=== PATIENT | female | born 1960 | race Caucasian/White ===

== ENCOUNTER 2023-01-04 14:34 | Emergency (ER) | payer OTHER ==
[~2023-01-04] VITALS: Ht 154.9 cm; Wt 59.9 kg
[2023-01-04] MEDS ORDERED: NAPROSYN500 MG PO (16:50)
== END 2023-01-04 17:51 | disposition home or self-care (01) ==
LOC: FSED 15:02
DX: S63.8X2A Sprain of other part of left wrist and hand, initial encounter (principal); W49.04XA Ring or other jewelry causing external constriction, initial encounter; Y92.89 Other specified places as the place of occurrence of the external cause
CPT/HCPCS: 99283